=== PATIENT | male | born 1960 | race Caucasian/White ===

== ENCOUNTER 2020-08-22 15:25 | Outpatient (CLI) | payer BC ==
[~2020-08-22] VITALS: Ht 180.3 cm; Wt 113.6 kg
[2020-08-22] MEDS ORDERED: VITAMINC1000TA PO (15:34)
[2020-08-22] MEDS ORDERED: ZESTRIL 10MG10 MG PO (15:34)
[2020-08-22] MEDS ORDERED: NATURAL ODORLE400 MG PO (15:36)
[2020-08-22] MEDS ORDERED: GINKGO3 PO (15:36)
[2020-08-22 15:43] VITALS: BP 127/73; PULSE 58; TEMP 97.8
[2020-08-22 16:00] VITALS: BP 120/75; PULSE 58; TEMP 98.1
[2020-08-22 16:15] VITALS: BP 120/70; PULSE 54
[2020-08-22 16:30] VITALS: BP 115/64; PULSE 54
[2020-08-22 16:45] VITALS: BP 114/68; PULSE 56
[2020-08-22 17:00] VITALS: BP 116/67; PULSE 53; TEMP 97.8
== END 2020-08-22 17:00 ==
LOC: EUO 15:25
DX: U07.1 COVID-19 (principal); Z68.34 Body mass index [BMI] 34.0-34.9, adult
CPT/HCPCS: Q0244